=== PATIENT | female | born 1955 | race Caucasian/White ===

== ENCOUNTER 2018-07-18 02:07 | Emergency (ER) | payer BC ==
[~2018-07-18] VITALS: Ht 165.1 cm; Wt 83.9 kg
[2018-07-18 02:19] VITALS: BP 141/86
--- NOTE | 2018-07-18 02:19 | NUR ---
ED Nurse Note: Patient walked in to ER c/o left arm pain 10/17. AAO x4, VSS at this time.
--- NOTE | 2018-07-18 02:23 | NUR ---
ED Nurse Note: Pt was moved from FT to bed 4#. Received report from [facility]. Pt is A/O X4, C/o left arm pain and numbness for one day. pt states that she had Hx of arthritis. Vital signs stable at this time, waiting for orders.
--- NOTE | 2018-07-18 02:36 | Emergency Room Report ---
History of Present Illness General Chief Complaint: Upper Extremity Injury Source: Patient Present Illness HPI This is a 62-year-old female with history of rheumatoid arthritis and high blood pressure. She presents with chief complaint of left arm pain. Pain initially started in the left neck/trapezius area. Now the whole arm has pain and numbness. No trauma. No chest pain. Ongoing for 2 days now. No fever chills but no nausea no vomiting. No focal deficit. Denies any other complaint. Nothing made it better. Nothing made it worse. Allergies: Coded Allergies: No Known Allergies (Unverified , 07/18/18) Patient History Past Medical History: see triage record, old chart reviewed, HTN Past Surgical History: other Pertinent Family History: none Social History: Denies: smoking Last Menstrual Period: na Now: No Immunizations: other Reviewed Nursing Documentation: PMH: Agreed; PSxH: Agreed Nursing Documentation-PMH Hx Cardiac Problems: No - RA Review of Systems Eye: Denies: eye pain, blurred vision ENT: Denies: ear pain, nose congestion, throat swelling Respiratory: Denies: cough, shortness of breath Cardiovascular: Denies: chest pain, palpitations Gastrointestinal: Denies: abdominal pain, diarrhea, nausea, vomiting Musculoskeletal: Reports: joint pain; Denies: back pain Skin: Denies: rash Neurological: Denies: headache, numbness Endocrine: Denies: increased thirst, increased urine Hematologic/Lymphatic: Denies: easy bruising All Other Systems: negative except mentioned in HPI Physical Exam Vital Signs Date Time Temp Pulse Resp B/P (MAP) Pulse Ox O2 Delivery O2 Flow Rate FiO2 07/18/18 02:10 97.7 91 18 94 Room Air 07/18/18 02:19 141/86 vitals unremarkable Sp02 EP Interpretation: reviewed, normal General Appearance: well appearing, no apparent distress, alert Head: normocephalic, atraumatic Eyes: bilateral eye PERRL, bilateral eye EOMI ENT: hearing grossly normal, normal pharynx Neck: full range of motion, supple, no meningismus, tender - Mild tenderness along the left trapezius and C7 area Respiratory: chest non-tender, lungs clear, normal breath sounds Cardiovascular #1: regular rate, rhythm, no murmur Gastrointestinal: normal bowel sounds, non tender, no mass, no organomegaly, no bruit, non-distended Musculoskeletal: back normal, gait/station normal, normal range of motion Psychiatric: mood/affect normal Skin: warm/dry Medical Decision Making Diagnostic Impression: Primary Impression: Cervical radiculopathy ER Course Patient presents with neck and arm pain consistent with cervical radiculopathy. No evidence of any cauda equina syndrome, spinal after abscess or neoplastic process. We'll discharge home with a course of steroid. CT/MRI/US Diagnostic Results CT/MRI/US Diagnostic Results : Imaging Test Ordered: CT C-spine Impression Read by radiologist. Degenerative changes. Last Vital Signs Date Time Temp Pulse Resp B/P (MAP) Pulse Ox O2 Delivery O2 Flow Rate FiO2 07/18/18 02:19 97.7 18 141/86 94 Room Air 07/18/18 02:10 91 Status: improved Disposition: HOME, SELF-CARE Condition: Stable Scripts Prednisone* (PREDNISONE*) 20 Mg Tablet 40 MG ORAL DAILY, #10 TAB Prov: Suresh Aleman MD 07/18/18 Ibuprofen* (MOTRIN*) 600 Mg Tablet 600 MG ORAL THREE TIMES A DAY, #30 TAB 0 Refills Prov: Suresh Aleman MD 07/18/18 Additional Instructions: Follow-up with your doctor in 7 days. You may need an MRI of his neck. Return if worse. Suresh Aleman MD July 18, 2018 02:36
--- NOTE | 2018-07-18 02:39 | NUR ---
ED Nurse Note: Pain meds given as ordered.
--- NOTE | 2018-07-18 02:46 | NUR ---
ED Nurse Note: Pt was sent down for CT of spine.
--- NOTE | 2018-07-18 02:58 | NUR ---
ED Nurse Note: Pt returned from CT of spine.
--- NOTE | 2018-07-18 03:16 | Diagnostic Imaging Report ---
EXAM: CT Cervical Spine Without Intravenous Contrast CLINICAL HISTORY: PAIN TECHNIQUE: Axial computed tomography images of the cervical spine without intravenous contrast. CTDI is 19.88 mGy and DLP is 539 mGy-cm. One or more of the following dose reduction techniques were used: automated exposure control, adjustment of the mA and/or kV according to patient size, use of iterative reconstruction technique. COMPARISON: No relevant prior studies available. FINDINGS: No acute fracture or subluxation. Degenerative changes which appear mild by CT. No significant central canal stenosis appreciated. MRI is more sensitive for disc/soft tissue pathology. IMPRESSION: No acute fracture. Degenerative changes which appear mild by CT.
[2018-07-18] MEDS ORDERED: IBUPROFEN600 MG ORAL (03:42)
[2018-07-18] MEDS ORDERED: PREDNISONE20 MG ORAL (03:42)
[2018-07-18 03:48] VITALS: BP 145/86
--- NOTE | 2018-07-18 03:48 | NUR ---
ER DISCHARGE NOTE: Patient is cleared to be discharged per Dr. Aleman. Pt feels better at this time. Pt is aox 4 on room air with stable vital signs. Pt was given dc and prescription instructions and was able to verbalize understanding. Pt ID band removed. Pt is able to ambulate with steady gait and took all belongings. Accompanied by her family.
== END 2018-07-18 03:48 | disposition home or self-care (01) ==
LOC: EMR 02:40
DX: M54.12 Radiculopathy, cervical region (principal); I10 Essential (primary) hypertension; M06.9 Rheumatoid arthritis, unspecified
CPT/HCPCS: 72125; 99284

== ENCOUNTER → 2020-04-24 | Emergency (ER) | payer MEDICARE, BC ==
[~2020-04-24] VITALS: Ht 165.1 cm; Wt 86.2 kg
[~2020-04-24] MED LIST: CEPHALEXIN500 MG ORAL; DICYCLOMINE HCL10 MG ORAL; FAMOTIDINE20 MG ORAL; IBUPROFEN600 MG ORAL; Morphine Sulfate 4mg/ml Inj (IV USE ONLY) IVP ONE; Omnipaque-300 100ml vial INJ PRN; PREDNISONE20 MG ORAL; ZOFRAN4 M1 ORAL; cefTRIAXone 1 GM in NS 55 ML IVPB ONE
--- NOTE | 2020-04-24 20:10 | NUR ---
ED Nurse Note: PATIENT CAME IN WITH COMPLAINTS OF ABDOMEN PAIN, NAUSEA, AND VOMITING BLOOD SPECIMEN AND URINE SENT TO LAB
[2020-04-24 20:15] VITALS: BP 175/95
[2020-04-24 20:21] LABS: BASOPHILS % (AUTO) 0.5 % (0.0-2.0); EOSINOPHILS % (AUTO) 0.2 % (0.0-3.0); HEMATOCRIT 45.3 % (37.0-47.0); HEMOGLOBIN 14.5 G/DL (12.0-16.0); LYMPHOCYTES % (AUTO) 14.5 % (20.0-45.0); MEAN CORPUSCULAR VOLUME 87 FL (80-99); MONOCYTES % (AUTO) 3.5 % (1.0-10.0); NEUTROPHILS % (AUTO) 81.3 % (45.0-75.0); PLATELET COUNT 267 K/UL (150-450); RED BLOOD COUNT 5.18 M/UL (4.20-5.40); RED CELL DISTRIBUTION WIDTH 13.5 % (11.6-14.8); WHITE BLOOD COUNT 11.3 K/UL (4.8-10.8)
[2020-04-24 20:29] LABS: APPEARANCE,URINE CLOUDY; BILIRUBIN, URINE NEGATIVE (NEGATIVE); COLOR,URINE PALE YELLOW; GLUCOSE, URINE (UA) NEGATIVE (NEGATIVE); KETONES,URINE NEGATIVE (NEGATIVE); LEUKOCYTE ESTERASE ,URINE 3+ (NEGATIVE); NITRITE,URINE NEGATIVE (NEGATIVE); PH,URINE 7 (4.5-8.0); PROTEIN,URINE 2+ (NEGATIVE); UROBILINOGEN,URINE NORMAL MG/DL (0.0-1.0)
[2020-04-24 20:35] LABS: ANION GAP 13 mmol/L (5-15); BLOOD UREA NITROGEN 20 mg/dL (7-18); CALCIUM 9.9 MG/DL (8.5-10.1); CARBON DIOXIDE 23 MMOL/L (21-32); CHLORIDE 102 MMOL/L (98-107); CREATININE 0.9 MG/DL (0.55-1.30); SODIUM 138 MMOL/L (136-145)
[2020-04-24 20:46] LABS: ALANINE AMINOTRANSFERASE 109 U/L (12-78); ALKALINE PHOSPHATASE 121 U/L (46-116); ASPARTATE AMINO TRANSFERASE 157 U/L (15-37); BILIRUBIN,TOTAL 0.6 MG/DL (0.2-1.0)
--- NOTE | 2020-04-24 20:49 | NUR ---
ED Nurse Note: PT TO CT
--- NOTE | 2020-04-24 21:11 | Diagnostic Imaging Report ---
EXAM: CT Abdomen and Pelvis With Intravenous Contrast CLINICAL HISTORY: PAIN TECHNIQUE: Axial computed tomography images of the abdomen and pelvis with intravenous contrast. CTDI is 53.4 mGy and DLP is 992.1 mGy-cm. One or more of the following dose reduction techniques were used: automated exposure control, adjustment of the mA and/or kV according to patient size, use of iterative reconstruction technique. COMPARISON: No relevant prior studies available. FINDINGS: ABDOMEN: Liver: Hemangiomas present within hepatic segment 6 and 7. Gallbladder and bile ducts: Unremarkable. Pancreas: Unremarkable. Spleen: Unremarkable. Adrenals: Unremarkable. 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 In addition there is an exophytic cyst measuring 7.2 cm with mild internal complexity. Additional cortical cyst in the right kidney. Punctate nonobstructing nephrolithiasis on the left. No ureteral stone or obstructive uropathy. Stomach and bowel: Unremarkable. PELVIS: Appendix: Status post appendectomy. Bladder: Unremarkable. Reproductive: Status post hysterectomy. ABDOMEN and PELVIS: Intraperitoneal space: Unremarkable. No free air. No significant fluid collection. Bones/joints: No acute fracture. Soft tissues: Unremarkable. Vasculature: Unremarkable. Lymph nodes: Unremarkable. IMPRESSION: 1. No acute abnormality. 2. 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 In addition there is an exophytic cyst measuring 7.2 cm with mild internal complexity. 3. Hemangiomas present within hepatic segment 6 and 7. 4. Status post hysterectomy. 5. Status post appendectomy.
--- NOTE | 2020-04-24 21:29 | Emergency Room Report ---
History of Present Illness General Chief Complaint: Abdominal Pain Source: Patient Present Illness HPI 64-year-old female with history of prediabetes, hyperlipidemia, gastritis here complaining of sudden onset of epigastric pain with radiation to chest and posterior upper back after eating fish from restaurant earlier today. Reports that the pain started 30 minutes after eating. Complains of acid reflux and few bouts of nonbloody emesis. Denies any diarrhea constipation. Also complains of diffuse abdominal pain at this time denies any abdominal surgical history. Denies any cough or congestion, chest pain or shortness of breath. Denies tobacco smoking drug use. Reports that she is extensive history of gastritis and is taking omeprazole. Has had 2 colonoscopies in the past within normal limits. 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 Patient History Past Medical History: see triage record Past Surgical History: none Pertinent Family History: none Immunizations: UTD Reviewed Nursing Documentation: PMH: Agreed; PSxH: Agreed Nursing Documentation-PMH Past Medical History: No History, Except For Hx Diabetes: No - prediabetic Review of Systems All Other Systems: negative except mentioned in HPI Physical Exam Vital Signs Date Time Temp Pulse Resp B/P (MAP) Pulse Ox O2 Delivery O2 Flow Rate FiO2 04/24/20 19:18 97.7 77 20 195/94 (127) 99 Sp02 EP Interpretation: reviewed, abnormal - elevated blood pressure General Appearance: no apparent distress, alert, GCS 15, non-toxic Head: normocephalic, atraumatic Eyes: bilateral eye normal inspection, bilateral eye PERRL ENT: no angioedema Neck: full range of motion, supple/symm/no masses Respiratory: chest non-tender, lungs clear, normal breath sounds, no rhonchi, no respiratory distress, no retraction, no accessory muscle use, speaking full sentences Cardiovascular #1: regular rate, rhythm, no edema, no JVD, no murmur Cardiovascular #2: 2+ carotid (R), 2+ carotid (L), 2+ radial (R), 2+ radial (L), 2+ dorsalis pedis (R), 2+ dorsalis pedis (L) Gastrointestinal: normal bowel sounds, no mass, no peritonitis, no bruit, non- distended, no hernia, no pulsatile mass, no rebound, guarding - Epigastric Rectal: deferred Genitourinary: no CVA tenderness Musculoskeletal: back normal Neurologic: alert, motor strength/tone normal, oriented x3, sensory intact, responsive, speech normal Psychiatric: judgement/insight normal, memory normal, mood/affect normal, no suicidal/homicidal ideation Skin: no rash Lymphatic: no adenopathy Medical Decision Making PA Attestation All my diagnosis and treatment plans were reviewed ad discussed with my supervising physician Dr. Mcallister Diagnostic Impression: Primary Impression: Fatty liver Additional Impressions: Gastritis UTI (urinary tract infection) ER Course 64-year-old female with history of prediabetes, hyperlipidemia, gastritis here complaining of sudden onset of epigastric pain with radiation to chest and posterior upper back after eating fish from restaurant earlier today. Reports that the pain started 30 minutes after eating. Complains of acid reflux and few bouts of nonbloody emesis. Denies any diarrhea constipation. Also complains of diffuse abdominal pain at this time denies any abdominal surgical history. Denies any cough or congestion, chest pain or shortness of breath. Denies tobacco smoking drug use. Reports that she is extensive history of gastritis and is taking omeprazole. Has had 2 colonoscopies in the past within normal limits. Ddx considered but are not limited to: appendicitis, cholecystis, gastritis, gastroenteritis, UTI, pyelonephritis, SBO, diverticulitis, influenza with GI manifestation, [place] Vital signs: are WNL, pt. is afebrile H&PE are most consistent with: Fatty liver, gastritis, UTI ORDERS: abdominal CT, abdominal pain set, EKG, omeprazole, Zofran, dicyclomine, Keflex ED INTERVENTIONS: Morphine, Zofran, Pepcid, NS bolus DISCHARGE: At this time pt. is stable for d/c to home. Will provide printed patient care instructions, and any necessary prescriptions. Care plan and follow up instructions have been discussed with the patient prior to discharge. Take m edication as directed, follow primary care provider, avoid eating spicy acidic food, if worsening symptom return to the emergency room EKG Diagnostic Results Rate: normal Rhythm: NSR ST Segments: no acute changes Other Impression No acute ST changes ASA given to the pt in ED: No Chest X-Ray Diagnostic Results Chest X-Ray Diagnostic Results : Chest X-Ray Ordered: Yes # of Views/Limited/Complete: 1 View Indication: Chest Pain EP Interpretation: Yes PA Xray: Interpretation reviewed, by supervising MD, and agrees with findings. Interpretation: no consolidation, no effusion, no pneumothorax Impression: No acute disease Electronically Signed by: Lina Hunter PA-C CT/MRI/US Diagnostic Results CT/MRI/US Diagnostic Results : Imaging Test Ordered: CT abdomen pelvis with contrast Impression COMPARISON: No relevant prior studies available. FINDINGS: ABDOMEN: Liver: Hemangiomas present within hepatic segment 6 and 7. Gallbladder and bile ducts: Unremarkable. Pancreas: Unremarkable. Spleen: Unremarkable. Adrenals: Unremarkable. 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 In addition there is an exophytic cyst measuring 7.2 cm with mild internal complexity. Additional cortical cyst in the right kidney. Punctate nonobstructing nephrolithiasis on the left. No ureteral stone or obstructive uropathy. Stomach and bowel: Unremarkable. PELVIS: Appendix: Status post appendectomy. Bladder: Unremarkable. Reproductive: Status post hysterectomy. ABDOMEN and PELVIS: Intraperitoneal space: Unremarkable. No free air. No significant fluid collection. Bones/joints: No acute fracture. Soft tissues: Unremarkable. Vasculature: Unremarkable. Lymph nodes: Unremarkable. IMPRESSION: 1. No acute abnormality. 2. 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 In addition there is an exophytic cyst measuring 7.2 cm with mild internal complexity. 3. Hemangiomas present within hepatic segment 6 and 7. 4. Status post hysterectomy. 5. Status post appendectomy. Last Vital Signs Date Time Temp Pulse Resp B/P (MAP) Pulse Ox O2 Delivery O2 Flow Rate FiO2 04/24/20 20:43 97.7 04/24/20 20:15 88 20 175/95 99 Disposition: HOME, SELF-CARE Condition: Stable Referrals: NOT CHOSEN IPA/MD,REFERRING (PCP) Patient Instructions: Abdominal Pain, Adult, Gastritis, Adult, [id number], Urinary Tract Infection Additional Instructions: Take medication as directed, follow primary care provider, avoid eating spicy acidic food, if worsening symptom return to the emergency room Lina Crowell Apr 24, 2020 21:29
[2020-04-24 21:39] VITALS: BP 168/82
--- NOTE | 2020-04-24 21:39 | NUR ---
ER DISCHARGE NOTE: Patient is cleared to be discharged per ERMD, pt is aox4, on room air, with stable vital signs. pt was given dc and prescription instructions, pt was able to verbalize understanding, pt id band and iv site removed without complications. pt is able to ambulate with steady gait. pt took all belongings.
--- NOTE | 2020-04-25 17:43 | Cardiology Report ---
APPROVED REPORT EKG Measurement Heart [id number] <Conclusion> Normal sinus rhythm Normal ECG
--- NOTE | 2020-04-25 18:55 | Diagnostic Imaging Report ---
Indication: Chest pain Technique: One view of the chest Comparison: none Findings: Lungs and pleural spaces are clear. Heart size is normal. Impression: No acute process
== END | disposition home or self-care (01) ==
LOC: EMR 19:45
DX: K29.70 Gastritis, unspecified, without bleeding (principal); N39.0 Urinary tract infection, site not specified; K76.0 Fatty (change of) liver, not elsewhere classified; E78.5 Hyperlipidemia, unspecified; R73.03 Prediabetes; Z90.710 Acquired absence of both cervix and uterus; Z90.89 Acquired absence of other organs; N28.1 Cyst of kidney, acquired
CPT/HCPCS: 36415; 71045; 74177; 80053; 81003; 83690; 83880; 84484; 85025; 87086; 93005; 96361; 96365; 96375; 99284; J0696; J2270; J2405; J7030; Q9965; S0028